=== PATIENT | male | born 1975 | race Two or more races ===

== ENCOUNTER 2018-11-02 01:43 | Emergency (ER) | payer MEDICAID ==
[~2018-11-02] VITALS: Ht 175.3 cm; Wt 122.0 kg
[~2018-11-02 01:43] MED LIST: BENZ1TAB7 PO; CLON-527 PO; CLON-529 PO; HAL5T PO; LAMO25TA40 PO; LISI-600 PO; METF500T PO; QUET-1 PO
[2018-11-02 02:17] VITALS: BP 145/87
[2018-11-02] MEDS ORDERED: PRAZ1CAP5 PO (14:28)
[2018-11-02] MEDS ORDERED: LISI40TA4 PO (14:28)
[2018-11-02] MEDS ORDERED: ARIP30TA7 PO (14:28)
[2018-11-02] MEDS ORDERED: LIT300C PO (14:28)
[2018-11-02] MEDS ORDERED: QUET300T2 PO (15:10)
[2018-11-02] MEDS ORDERED: LAMO150T2 PO (15:10)
[2018-11-02] MEDS ORDERED: LAMO25TA94 PO (15:10)
[2018-11-02] MEDS ORDERED: ARIP400S3 IM (15:10)
[2018-11-02] MEDS ORDERED: RISP3TAB3 PO (15:10)
== END 2018-11-02 02:20 | disposition home or self-care (01) ==
LOC: ER 01:44
DX: J06.9 Acute upper respiratory infection, unspecified (principal); I10 Essential (primary) hypertension; E11.9 Type 2 diabetes mellitus without complications; G89.29 Other chronic pain; Z79.899 Other long term (current) drug therapy
CPT/HCPCS: 99283

== ENCOUNTER 2018-11-02 13:58 | Emergency (ER) | payer MEDICAID ==
[~2018-11-02] VITALS: Ht 175.3 cm; Wt 108.0 kg
[2018-11-02] MEDS ORDERED: ARIP30TA7 PO (14:28)
[2018-11-02] MEDS ORDERED: LIT300C PO (14:28)
[2018-11-02] MEDS ORDERED: LISI40TA4 PO (14:28)
[2018-11-02] MEDS ORDERED: PRAZ1CAP5 PO (14:28)
[2018-11-02 15:08] LABS: BASOPHILS % (AUTO) 0.2 % (0-1); EOSINOPHILS # (AUTO) 0.1 X10'3 (0-0.9); EOSINOPHILS % (AUTO) 1.7 % (0-6); HEMATOCRIT 45.1 % (42.0-52.0); HEMOGLOBIN 15.9 g/dl (14.0-17.9); LYMPHOCYTES # (AUTO) 1.8 X10'3 (1.1-4.8); LYMPHOCYTES % (AUTO) 22.5 % (21-51); MEAN CORPUSCULAR HEMOGLOBIN 33.7 PG (27.0-31.0); MEAN CORPUSCULAR HGB CONC 35.2 % (33.0-36.5); MEAN CORPUSCULAR VOLUME 95.9 FL (78-98); MEAN PLATELET VOLUME 9.3 FL (7.4-10.4); MONOCYTES # (AUTO) 0.4 X10'3 (0-0.9); MONOCYTES % (AUTO) 5.4 % (2-12); NEUTROPHILS # (AUTO) 5.8 X10'3 (1.8-7.7); NEUTROPHILS % (AUTO) 70.2 % (42-75); PLATELET COUNT 105 X10'3 (140-440); RED CELL DISTRIBUTION WIDTH 14.1 % (11.5-14.5); WHITE BLOOD COUNT 8.2 X10'3 (4.5-11.0)
[2018-11-02] MEDS ORDERED: LAMO150T2 PO (15:10)
[2018-11-02] MEDS ORDERED: QUET300T2 PO (15:10)
[2018-11-02] MEDS ORDERED: RISP3TAB3 PO (15:10)
[2018-11-02] MEDS ORDERED: ARIP400S3 IM (15:10)
[2018-11-02] MEDS ORDERED: LAMO25TA94 PO (15:10)
[2018-11-02 15:25] LABS: ALANINE AMINOTRANSFERASE 34 U/L (12-78); ALBUMIN 3.7 G/DL (3.4-5.0); ALBUMIN/GLOBULIN RATIO 1.1 (1.1-1.5); ALKALINE PHOSPHATASE 89 IU/L (46-116); ANION GAP 10 (8-16); ASPARTATE AMINO TRANSFERASE 25 U/L (10-37); BILIRUBIN,TOTAL 0.5 MG/DL (0.1-1.0); BLOOD UREA NITROGEN 11 MG/DL (7-18); BUN/CREATININE RATIO 11.3 (5.4-32.0); CALCIUM 8.2 MG/DL (8.5-10.1); CHLORIDE 108 MMOL/L (99-107); CREATININE 0.97 MG/DL (0.60-1.10); ETHANOL 0.182 GM/DL (0.0-0.010); GLUCOSE 101 MG/DL (70-104); SODIUM 143 MMOL/L (135-145); TOTAL CARBON DIOXIDE 24.7 MMOL/L (24-32); TOTAL PROTEIN 7.2 G/DL (6.4-8.2); eGFR 84 ML/MIN
[2018-11-02 15:30] LABS: URINE AMPHETAMINE SCREEN NEGATIVE (Neg); URINE BARBITUATE SCREEN NEGATIVE (Neg); URINE BENZODIAZEPINES SCREEN NEGATIVE (Neg); URINE CANNABINOID SCREEN POSITIVE (Neg); URINE COCAINE SCREEN NEGATIVE (Neg); URINE METHADONE SCREEN NEGATIVE (Neg); URINE OPIATE SCREEN NEGATIVE (Neg); URINE PHENCYCLIDINE SCREEN NEGATIVE (Neg)
[2018-11-02] MEDS: metFORMIN 500mg tablet PO SCH (20:00)
[2018-11-02] MEDS: prazosin 1mg capsule PO SCH (21:34)
[2018-11-02] MEDS: quetiapine 100mg tablet PO SCH (21:34)
[2018-11-02] MEDS: lithium carbonate 300mg SR tablet (LithoBID) PO SCH (21:36)
[2018-11-02] MEDS: lamoTRIgine 25mg tablet PO SCH (21:36)
[2018-11-02] MEDS: risperiDONE 2mg tablet PO SCH (21:36)
[2018-11-03] MEDS: aripiprazole 5mg tablet PO SCH (08:42)
[2018-11-03] MEDS: lisinopril 20mg tablet PO SCH (08:43)
[2018-11-03] MEDS: lamoTRIgine 25mg tablet PO SCH ×2 (08:44→20:58)
[2018-11-03] MEDS: metFORMIN 500mg tablet PO SCH ×2 (08:47→20:57)
[2018-11-03] MEDS: lithium carbonate 300mg SR tablet (LithoBID) PO SCH (20:58)
[2018-11-03] MEDS: prazosin 1mg capsule PO SCH (20:59)
[2018-11-03] MEDS: risperiDONE 2mg tablet PO SCH (20:59)
[2018-11-03] MEDS: quetiapine 100mg tablet PO SCH (21:01)
[2018-11-04] MEDS: lisinopril 20mg tablet PO SCH (08:03)
[2018-11-04] MEDS: metFORMIN 500mg tablet PO SCH ×2 (08:03→20:26)
[2018-11-04] MEDS: lamoTRIgine 25mg tablet PO SCH ×2 (08:04→20:26)
[2018-11-04] MEDS: aripiprazole 5mg tablet PO SCH (08:04)
[2018-11-04] MEDS ORDERED: ondansetron 4mg rapidly disintigrating tab PO ONE (10:45)
[2018-11-04] MEDS: prazosin 1mg capsule PO SCH (20:26)
[2018-11-04] MEDS: quetiapine 100mg tablet PO SCH (20:26)
[2018-11-04] MEDS: lithium carbonate 300mg SR tablet (LithoBID) PO SCH (20:26)
[2018-11-04] MEDS: risperiDONE 2mg tablet PO SCH (20:27)
[2018-11-05] MEDS: aripiprazole 5mg tablet PO SCH (07:38)
[2018-11-05] MEDS: metFORMIN 500mg tablet PO SCH (07:39)
[2018-11-05] MEDS: lamoTRIgine 25mg tablet PO SCH (07:39)
[2018-11-05] MEDS: lisinopril 20mg tablet PO SCH (07:41)
[2018-11-05] MEDS: guaiFENesin/DM 10ml UD oral syrup PO PRN ×2 (07:41→15:02)
[2018-11-05 17:55] VITALS: BP 132/91
[2018-11-30] MEDS ORDERED: aripiprazole 400mg suspension ER syringe IM SCH (10:00)
== END 2018-11-08 15:39 | disposition home or self-care (01) ==
LOC: ER 13:59
DX: F32.9 Major depressive disorder, single episode, unspecified (principal); R45.851 Suicidal ideations; I10 Essential (primary) hypertension; E11.9 Type 2 diabetes mellitus without complications; G89.29 Other chronic pain; F41.9 Anxiety disorder, unspecified; F17.210 Nicotine dependence, cigarettes, uncomplicated; F20.9 Schizophrenia, unspecified; Z79.899 Other long term (current) drug therapy
CPT/HCPCS: 36415; 80053; 80178; 80305; 80320; 84443; 85025; 99285

== ENCOUNTER 2019-06-07 05:42 | Emergency (ER) | payer MEDICAID ==
[~2019-06-07] VITALS: Ht 175.3 cm; Wt 138.7 kg
[~2019-06-07 05:42] MED LIST changes: +ARIP30TA7 PO; +ARIP400S3 IM; -BENZ1TAB7 PO; -CLON-527 PO; -CLON-529 PO; -HAL5T PO; +LAMO150T2 PO; -LAMO25TA40 PO; +LAMO25TA94 PO; -LISI-600 PO; +LISI40TA4 PO; +LIT300C PO; +PRAZ1CAP5 PO; -QUET-1 PO; +QUET300T2 PO; +RISP3TAB3 PO
[2019-06-07 07:00] LABS: CLARITY,URINE CLEAR (Clear); COLOR,URINE STRAW (Yellow); GLUCOSE, URINE NEGATIVE (Neg); KETONES,URINE NEGATIVE (Neg); LEUKOCYTE ESTERASE ,URINE NEGATIVE (Neg); NITRITES, URINE NEGATIVE (Neg); OCCULT BLOOD,URINE TRACE-INTACT (Neg); PH,URINE 6.5 (4.8-8.0); PROTEIN,URINE TRACE mg/dl (Neg); UA COLLECTION TYPE VOIDED; UROBILINOGEN,URINE 0.2 E.U/dL (0.2-1.0)
[2019-06-07 07:08] LABS: BACTERIA,URINE NONE SEEN /HPF (Neg); MUCUS STRANDS NONE SEEN /LPF (Neg); RBC,URINE 0-2 /HPF (0-2); SQUAMOUS EPITHELIAL CELL,UR FEW /LPF (FEW); WBC,URINE NONE SEEN /HPF (0-4)
[2019-06-07 07:12] LABS: URINE AMPHETAMINE SCREEN NEGATIVE (Neg); URINE BARBITUATE SCREEN NEGATIVE (Neg); URINE BENZODIAZEPINES SCREEN NEGATIVE (Neg); URINE CANNABINOID SCREEN POSITIVE (Neg); URINE COCAINE SCREEN NEGATIVE (Neg); URINE METHADONE SCREEN NEGATIVE (Neg); URINE OPIATE SCREEN NEGATIVE (Neg); URINE PHENCYCLIDINE SCREEN NEGATIVE (Neg)
[2019-06-07 07:16] LABS: BASOPHILS # (AUTO) 0.1 X10'3 (0-0.2); EOSINOPHILS # (AUTO) 0.1 X10'3 (0-0.9); EOSINOPHILS % (AUTO) 2.4 % (0-6); HEMATOCRIT 46.4 % (42.0-52.0); HEMOGLOBIN 16.3 g/dl (14.0-17.9); LYMPHOCYTES % (AUTO) 24.9 % (21-51); MEAN CORPUSCULAR HEMOGLOBIN 34.4 PG (27.0-31.0); MEAN CORPUSCULAR VOLUME 98.2 FL (78-98); MEAN PLATELET VOLUME 8.5 FL (7.4-10.4); MONOCYTES # (AUTO) 0.3 X10'3 (0-0.9); MONOCYTES % (AUTO) 6.6 % (2-12); NEUTROPHILS # (AUTO) 2.5 X10'3 (1.8-7.7); NEUTROPHILS % (AUTO) 64.1 % (42-75); PLATELET COUNT 104 X10'3 (140-440); RED BLOOD COUNT 4.73 X10'6 (4.70-6.10); RED CELL DISTRIBUTION WIDTH 13.9 % (11.5-14.5); WHITE BLOOD COUNT 3.8 X10'3 (4.5-11.0)
--- NOTE | 2019-06-07 08:17 | NUR ---
[facility] REP IS GOING TO HELP GET THE PT'S MED REC WHEN HE COMES IN AT 8:30
[2019-06-07 08:18] LABS: ALANINE AMINOTRANSFERASE 118 U/L (12-78); ALKALINE PHOSPHATASE 93 IU/L (46-116); ANION GAP 11 (8-16); ASPARTATE AMINO TRANSFERASE 78 U/L (10-37); BILIRUBIN,TOTAL 0.9 MG/DL (0.1-1.0); BLOOD UREA NITROGEN 7 MG/DL (7-18); BUN/CREATININE RATIO 9.3 (5.4-32.0); CHLORIDE 105 MMOL/L (99-107); CREATININE 0.75 MG/DL (0.60-1.10); GLUCOSE 108 MG/DL (70-104); POTASSIUM 3.5 MMOL/L (3.5-5.1); SODIUM 140 MMOL/L (135-145); TOTAL CARBON DIOXIDE 24.5 MMOL/L (24-32); TOTAL PROTEIN 7.9 G/DL (6.4-8.2); eGFR > 90 ML/MIN
[2019-06-07 08:49] LABS: VALPROATE < 3.0 UG/ML (50-100)
[2019-06-07 08:57] LABS: ETHANOL 0.075 GM/DL (0.0-0.010)
[2019-06-07] MEDS ORDERED: lisinopril 20mg tablet PO ONE (11:45)
--- NOTE | 2019-06-07 11:50 | NUR ---
DISCUSSED WITH DR SPEAR THAT PT REPORTS HIS BP MED WAS DC'D APPROX A WEEK AGO. PTS BP RETAKEN AND FOUND TO BE 216/139. LISINOPRIL 40MG DAILY TO BE RESUMED.
[2019-06-07] MEDS: lamoTRIgine 100mg tablet PO SCH (14:45)
[2019-06-07] MEDS: lamoTRIgine 25mg tablet PO SCH (14:45)
--- NOTE | 2019-06-07 15:05 | NUR ---
PT WAS SEEN BY [facility] WORKER AND IS BEING PLACED ON 5159
--- NOTE | 2019-06-07 17:00 | NUR ---
GAVE REPORT TO MATTHEW FROM [facility] REGARDING POSSIBLE PLACEMENT.
--- NOTE | 2019-06-07 17:38 | NUR ---
[facility] IF BP EQUAL OR LESS THAN 108/100 4 HOURS APART, DR HALLFS INFORMED ORDERS TO FOLLOW.
[2019-06-07] MEDS ORDERED: metoprolol tartrate 50mg tablet PO ONE (17:40)
--- NOTE | 2019-06-07 17:52 | NUR ---
MEDICATED PT WITH METOPROLOL PER ORDERS, PT CALM AND COOPERATIVE DURING INTERACTION.
[2019-06-07] MEDS ORDERED: aripiprazole 5mg tablet PO SCH (19:25)
[2019-06-07] MEDS: quetiapine 100mg tablet PO SCH (20:19)
[2019-06-07] MEDS: lithium carbonate 450mg CR tablet PO SCH (20:19)
--- NOTE | 2019-06-08 07:00 | NUR ---
Pt up to use the BR.
[2019-06-08] MEDS: lamoTRIgine 100mg tablet PO SCH (08:21)
[2019-06-08] MEDS: lisinopril 20mg tablet PO SCH (08:21)
[2019-06-08] MEDS: lamoTRIgine 25mg tablet PO SCH (08:22)
--- NOTE | 2019-06-08 08:40 | NUR ---
Pt reports depression at a 7/10, still endorsing SI with no specific plan today. Pt rates his anxiety at a 6/10. Pt reports CAH to harm himself and VH; "just black clouds." Pt cooperative with medications this morning. BP is stable today at 121/77 before BP meds.
--- NOTE | 2019-06-08 10:21 | NUR ---
[facility] called, pt has been accepted there, requested VS flowsheet and current med list to be faxed over to them: done.
--- NOTE | 2019-06-08 12:06 | NUR ---
Stephanie from the [facility] office called requesting that just a VS flowsheet be faxed to [facility]. Rechecked VS, BP currently 138/96, pulse of 86. Faxed flowsheet with current VS to [facility].
--- NOTE | 2019-06-08 14:00 | NUR ---
Flavio hicks in [facility] - 06/08/19 at 1419 by YESICA Ot up to the bathroom.
--- NOTE | 2019-06-08 14:00 | NUR ---
Pt up to the bathroom.
--- NOTE | 2019-06-08 16:00 | NUR ---
Pt c/o increased anxiety, probably due to another pt who was being loud. Pt has no prn med for anxiety, will address with MD.
--- NOTE | 2019-06-08 17:05 | NUR ---
Patient resting in bed. no s/s of distress or pain. will continue to monitor.
--- NOTE | 2019-06-08 17:22 | NUR ---
Pt resting calmly and quietly in bed at this time.
--- NOTE | 2019-06-08 18:45 | NUR ---
Patient sleeping on right side. No distress observed. Continue to monitor.
--- NOTE | 2019-06-08 19:55 | NUR ---
Patient sleeping on left side. No distress observed. Continue to monitor.
[2019-06-08] MEDS: quetiapine 100mg tablet PO SCH (20:24)
[2019-06-08] MEDS: lithium carbonate 450mg CR tablet PO SCH (20:24)
[2019-06-08] MEDS: aripiprazole 5mg tablet PO SCH (20:25)
--- NOTE | 2019-06-08 21:05 | NUR ---
Patient sleeping on left side. No distress observed. Continue to monitor.
--- NOTE | 2019-06-08 23:20 | NUR ---
Patient sleeping on right side. No distress observed. Continue to monitor.
--- NOTE | 2019-06-09 01:40 | NUR ---
Patient up and adjusting his position. No distress observed. Continue to monitor.
--- NOTE | 2019-06-09 04:01 | NUR ---
Patient sleeping on left side. No distress observed. Continue to monitor.
--- NOTE | 2019-06-09 07:37 | NUR ---
Patient compliant with 1:1 assessment, verbalizes depression at 8/10 which is increased from yesterday. Understands reason for delay in placement. States he feels safe here.
[2019-06-09] MEDS: lamoTRIgine 100mg tablet PO SCH (08:46)
[2019-06-09] MEDS: lamoTRIgine 25mg tablet PO SCH (08:46)
[2019-06-09] MEDS: lisinopril 20mg tablet PO SCH (08:48)
--- NOTE | 2019-06-09 09:59 | NUR ---
Consumed 100% of breakfast, resting comfortably, requested bath wipes and clean scrubs. Awaiting placement. compliant with all medications.
--- NOTE | 2019-06-09 15:19 | NUR ---
Spoke with [facility] regarding possible placement. Awaiting notification.
--- NOTE | 2019-06-09 16:43 | NUR ---
Resting in bed. No outward signs/symptoms of distress
[2019-06-09] MEDS: lithium carbonate 450mg CR tablet PO SCH (20:21)
[2019-06-09] MEDS: quetiapine 100mg tablet PO SCH (20:22)
[2019-06-09] MEDS: aripiprazole 5mg tablet PO SCH (20:22)
[2019-06-09 22:40] VITALS: BP 142/95
== END 2019-06-09 22:49 | disposition home or self-care (01) ==
LOC: ER 05:43
DX: R45.851 Suicidal ideations (principal); F32.9 Major depressive disorder, single episode, unspecified; F20.9 Schizophrenia, unspecified; I10 Essential (primary) hypertension; E11.9 Type 2 diabetes mellitus without complications; G89.29 Other chronic pain; F41.9 Anxiety disorder, unspecified; F17.200 Nicotine dependence, unspecified, uncomplicated; Z79.84 Long term (current) use of oral hypoglycemic drugs; Z79.899 Other long term (current) drug therapy
CPT/HCPCS: 36415; 80053; 80164; 80178; 80305; 80320; 81001; 84443; 85025; 99285

== ENCOUNTER 2019-06-29 17:30 | Emergency (ER) | payer MEDICAID ==
[~2019-06-29] VITALS: Ht 175.3 cm; Wt 127.3 kg
[~2019-06-29 17:30] MED LIST changes: -ARIP30TA7 PO; -ARIP400S3 IM; -LAMO25TA94 PO; -LIT300C PO; -METF500T PO; -PRAZ1CAP5 PO; -RISP3TAB3 PO
[2019-06-29] MEDS ORDERED: quetiapine 100mg tablet PO STA (18:02)
--- NOTE | 2019-06-29 18:33 | NUR ---
Discussed pt's increased racing thoughts and willingness to accept IM medication with Dr Syed. New orders received for Katarzyna.
[2019-06-29] MEDS ORDERED: ziprasidone IM 20mg inj **IM only IM ONE (18:35)
[2019-06-29 18:37] LABS: BASOPHILS # (AUTO) 0.2 X10'3 (0-0.2); HEMOGLOBIN 17.4 g/dl (14.0-17.9); MEAN CORPUSCULAR HGB CONC 35.5 g/dL (33.0-36.5); MEAN PLATELET VOLUME 8.4 FL (7.4-10.4); MONOCYTES # (AUTO) 0.5 X10'3 (0-0.9); NEUTROPHILS # (AUTO) 3.5 X10'3 (1.8-7.7)
[2019-06-29 18:38] LABS: ALANINE AMINOTRANSFERASE 73 U/L (12-78); ALBUMIN 4.1 G/DL (3.4-5.0); ALKALINE PHOSPHATASE 106 IU/L (46-116); ANION GAP 12 (8-16); ASPARTATE AMINO TRANSFERASE 49 U/L (10-37); BILIRUBIN,TOTAL 0.5 MG/DL (0.1-1.0); BLOOD UREA NITROGEN 5 MG/DL (7-18); BUN/CREATININE RATIO 5.3 (5.4-32.0); CALCIUM 8.4 MG/DL (8.5-10.1); CHLORIDE 107 MMOL/L (99-107); CREATININE 0.94 MG/DL (0.60-1.10); GLUCOSE 96 MG/DL (70-104); POTASSIUM 3.4 MMOL/L (3.5-5.1); SODIUM 145 MMOL/L (135-145); TOTAL CARBON DIOXIDE 26.4 MMOL/L (24-32); TOTAL PROTEIN 8.2 G/DL (6.4-8.2); eGFR 87 ML/MIN
[2019-06-29 18:39] LABS: BASOPHILS % (AUTO) 1.8 % (0-1); EOSINOPHILS # (AUTO) 0.2 X10'3 (0-0.9); EOSINOPHILS % (AUTO) 2.9 % (0-6); LYMPHOCYTES # (AUTO) 4.1 X10'3 (1.1-4.8); MEAN CORPUSCULAR HEMOGLOBIN 34.1 PG (27.0-31.0); MEAN CORPUSCULAR VOLUME 96.1 FL (78-98); NEUTROPHILS % (AUTO) 41.3 % (42-75); PLATELET COUNT 206 X10'3 (140-440); RED CELL DISTRIBUTION WIDTH 13.6 % (11.5-14.5); WHITE BLOOD COUNT 8.5 X10'3 (4.5-11.0)
[2019-06-29 18:40] LABS: ETHANOL 0.329 GM/DL (0.0-0.010)
[2019-06-29 19:27] LABS: PLATELET ESTIMATE NORMAL
[2019-06-29 19:28] LABS: SPHEROCYTES 1+
[2019-06-29 19:30] LABS: URINE AMPHETAMINE SCREEN NEGATIVE (Neg); URINE BARBITUATE SCREEN NEGATIVE (Neg); URINE BENZODIAZEPINES SCREEN NEGATIVE (Neg); URINE CANNABINOID SCREEN NEGATIVE (Neg); URINE COCAINE SCREEN NEGATIVE (Neg); URINE METHADONE SCREEN NEGATIVE (Neg); URINE OPIATE SCREEN NEGATIVE (Neg); URINE PHENCYCLIDINE SCREEN NEGATIVE (Neg)
--- NOTE | 2019-06-29 19:52 | NUR ---
Packet sent to [facility]. Confirmed receipt of packet with Gene @ [facility] office.
[2019-06-29] MEDS ORDERED: quetiapine 100mg tablet PO SCH (21:00)
--- NOTE | 2019-06-30 02:26 | NUR ---
Pt awoke briefly. He was more oriented than anytime previously in this RNs shift. He recalled agreeing to an IM shot, reporting his thoughts have slowed down and are "more like they're suppose to be." Pt denies S/H/I @ this time. Pt returned readily to sleep.
[2019-06-30] MEDS ORDERED: lisinopril 20mg tablet PO ONE (05:15)
--- NOTE | 2019-06-30 07:19 | NUR ---
patient has been up to use restroom and is sitting quietly in room.
--- NOTE | 2019-06-30 07:28 | NUR ---
All medications given and taken.
[2019-06-30] MEDS ORDERED: quetiapine 100mg tablet PO SCH (08:00)
[2019-06-30] MEDS ORDERED: lamoTRIgine 100mg tablet PO SCH (08:00)
[2019-06-30] MEDS ORDERED: lisinopril 20mg tablet PO SCH (08:00)
[2019-06-30] MEDS ORDERED: QUEtiapine 25mg tablet CORPAK SCH (08:00)
--- NOTE | 2019-06-30 08:23 | NUR ---
[facility] Page in to eval patient.
[2019-06-30 09:03] VITALS: BP 119/61
--- NOTE | 2019-06-30 11:22 | NUR ---
ok to discharge pt per dr cheema
== END 2019-06-30 11:23 | disposition home or self-care (01) ==
LOC: ER 17:31
DX: R45.851 Suicidal ideations (principal); R45.850 Homicidal ideations; F10.129 Alcohol abuse with intoxication, unspecified; I10 Essential (primary) hypertension; E11.9 Type 2 diabetes mellitus without complications; G89.29 Other chronic pain; F41.9 Anxiety disorder, unspecified; F31.9 Bipolar disorder, unspecified; F20.9 Schizophrenia, unspecified; F17.200 Nicotine dependence, unspecified, uncomplicated; Z79.899 Other long term (current) drug therapy; Y90.0 Blood alcohol level of less than 20 mg/100 ml
CPT/HCPCS: 36415; 80053; 80305; 80320; 85025; 93005; 96372; 99284; J3486

== ENCOUNTER 2019-11-22 18:44 | Emergency (ER) | payer MEDICAID ==
[~2019-11-22] VITALS: Ht 175.3 cm; Wt 127.3 kg
[2019-11-22 18:53] VITALS: BP 199/130
--- NOTE | 2019-11-22 19:39 | NUR ---
PT STATES HE HAS NO WISH TO HARM SELF OR OTHERS. HE STATES HE SELF MEDICATES WITH METH AND ETOH. HE WANTS AN RX OF UNKNOWN [facility] MEDS
[2019-11-23] MEDS ORDERED: NO HOME MEDS (16:10)
== END 2019-11-22 20:13 | disposition home or self-care (01) ==
LOC: ER 18:45
DX: R45.1 Restlessness and agitation (principal); I10 Essential (primary) hypertension; E11.9 Type 2 diabetes mellitus without complications; G89.29 Other chronic pain; F41.9 Anxiety disorder, unspecified; F31.9 Bipolar disorder, unspecified; F20.9 Schizophrenia, unspecified; F10.99 Alcohol use, unspecified with unspecified alcohol-induced disorder; Z79.899 Other long term (current) drug therapy; Y90.9 Presence of alcohol in blood, level not specified
CPT/HCPCS: 99281

== ENCOUNTER 2019-11-23 15:37 | Emergency (ER) | payer MEDICAID ==
[~2019-11-23] VITALS: Ht 175.3 cm; Wt 109.0 kg
--- NOTE | 2019-11-23 15:45 | NUR ---
Pt arrived on unit accompanied by ER unit guillermina and girlfriend, Brittney. He is ambulating self in no physical distress. He is pleasant and cooperative with care. All items inventoried and stored in [facility] lockers. He is changes in to [facility] scrubs. All contraband secured. Water and snack offered to patient. He is a smoker, states about 5 cigarettes/day. He states that he is actively suicidal and that he would "walk in front of a car". Denies A/VH. He states that he has thoughts of hurting others but denies this currently.
[2019-11-23] MEDS ORDERED: NO HOME MEDS (16:10)
--- NOTE | 2019-11-23 16:10 | NUR ---
Patient states that he has not taken any medications in 2 months and can not remember which medications he took or the amount. He recalls that he had an injection in September and states he thinks it was Abilify Maintaina.
--- NOTE | 2019-11-23 16:47 | NUR ---
Abiel TRUJILLO, is at bedside assessing the patient.
--- NOTE | 2019-11-23 16:49 | NUR ---
Per [facility], he was seen in June. He was transferred to [facility] and left the facility. He currently resides with his girlfriend at [facility] in [place].
--- NOTE | 2019-11-23 16:53 | NUR ---
Girlfriend states that she "does not believe in medications and I could not talk to him when he was on medications, he was like a zombie".
[2019-11-23 17:40] LABS: ALANINE AMINOTRANSFERASE 120 U/L (12-78); ALBUMIN/GLOBULIN RATIO 1.1 (1.1-1.5); ALKALINE PHOSPHATASE 125 IU/L (46-116); ANION GAP 9 (8-16); ASPARTATE AMINO TRANSFERASE 75 U/L (10-37); BILIRUBIN,TOTAL 1.6 MG/DL (0.1-1.0); BLOOD UREA NITROGEN 8 MG/DL (7-18); BUN/CREATININE RATIO 8.2 (5.4-32.0); CALCIUM 9.3 MG/DL (8.5-10.1); CHLORIDE 102 MMOL/L (99-107); CREATININE 0.97 MG/DL (0.60-1.10); ETHANOL < 0.010 GM/DL (0.0-0.010); GLUCOSE 101 MG/DL (70-104); SODIUM 140 MMOL/L (135-145); TOTAL CARBON DIOXIDE 28.7 MMOL/L (24-32); TOTAL PROTEIN 7.5 G/DL (6.4-8.2); eGFR 83 ML/MIN
[2019-11-23 17:40] LABS: URINE AMPHETAMINE SCREEN POSITIVE (Neg); URINE BARBITUATE SCREEN NEGATIVE (Neg); URINE BENZODIAZEPINES SCREEN NEGATIVE (Neg); URINE CANNABINOID SCREEN POSITIVE (Neg); URINE COCAINE SCREEN NEGATIVE (Neg); URINE METHADONE SCREEN NEGATIVE (Neg); URINE OPIATE SCREEN NEGATIVE (Neg); URINE PHENCYCLIDINE SCREEN NEGATIVE (Neg)
[2019-11-23] MEDS ORDERED: ziprasidone IM 20mg inj **IM only IM ONE (17:45)
[2019-11-23 17:50] LABS: BASOPHILS # (AUTO) 0.1 X10'3 (0-0.2); BASOPHILS % (AUTO) 1.2 % (0-1); EOSINOPHILS # (AUTO) 0.1 X10'3 (0-0.9); EOSINOPHILS % (AUTO) 1.8 % (0-6); HEMATOCRIT 46.8 % (42.0-52.0); HEMOGLOBIN 16.8 g/dl (14.0-17.9); LYMPHOCYTES # (AUTO) 1.2 X10'3 (1.1-4.8); LYMPHOCYTES % (AUTO) 23.4 % (21-51); MEAN CORPUSCULAR HEMOGLOBIN 34.7 PG (27.0-31.0); MEAN CORPUSCULAR HGB CONC 35.9 g/dL (33.0-36.5); MEAN CORPUSCULAR VOLUME 96.5 FL (78-98); MEAN PLATELET VOLUME 9.7 FL (7.4-10.4); MONOCYTES # (AUTO) 0.6 X10'3 (0-0.9); MONOCYTES % (AUTO) 12.1 % (2-12); NEUTROPHILS # (AUTO) 3.1 X10'3 (1.8-7.7); NEUTROPHILS % (AUTO) 61.5 % (42-75); PLATELET COUNT 116 X10'3 (140-440); RED BLOOD COUNT 4.85 X10'6 (4.70-6.10); RED CELL DISTRIBUTION WIDTH 14.3 % (11.5-14.5); WHITE BLOOD COUNT 5.1 X10'3 (4.5-11.0)
--- NOTE | 2019-11-23 18:06 | NUR ---
Gave report to HAYLEY Best. New order noted for RONNIE Colón.
[2019-11-23 18:10] LABS: PLATELET ESTIMATE DECREASED
--- NOTE | 2019-11-23 18:10 | NUR ---
This patient is awake and pacing. He exhibits extreme agitation. Patient is well oriented. Patient states "give me something to calm me down, my mind is racing!" This patient is cooperative with this card writer hand at this moment. Geodon 10 mg will be given IM.
[2019-11-23 18:11] LABS: ANISOCYTOSIS 1+; SPHEROCYTES FEW
[2019-11-23] MEDS ORDERED: potassium Cl 20 mEq SR tablet PO STA (18:12)
--- NOTE | 2019-11-23 18:25 | NUR ---
Patient was given Geodon 10 mg IM. PO K+ 10mEq was given also due to low pottasium level on labs.
[2019-11-23] MEDS ORDERED: potassium Cl 20 mEq SR tablet PO ONE (18:30)
--- NOTE | 2019-11-23 18:44 | NUR ---
Patient remains very agitated. B/P 178/126, Pulse 112, Resp 16, Temp 97.9 Oral, Sa02 is 98 percent on room air. Patient exhibits paranoia, he is responding to voices that are telling him to hurt others and kill himself. Patient states his mind is spinning way to fast. Orders recieved for B52 IM as patient is not calming with the Geodon that was administered IM earlier.
[2019-11-23] MEDS ORDERED: LORazepam 2 mg/ml vial IM ONE (18:45)
[2019-11-23] MEDS ORDERED: diphenhydrAMINE 50 mg/ml inj IM ONE (18:45)
[2019-11-23] MEDS ORDERED: haloperidol lactate 5mg/ml inj IM ONE (18:45)
--- NOTE | 2019-11-23 18:50 | NUR ---
B52 given IM. Patient was medication compliant.
--- NOTE | 2019-11-23 19:12 | NUR ---
Patient is now sleeping low fowlers position in bed. He is warm and dry, normal respiratory rate of 14 with good tidal volume. Patients pulse rate is now 88.
[2019-11-24 00:35] LABS: CLARITY,URINE CLEAR (Clear); COLOR,URINE YELLOW (Yellow); GLUCOSE, URINE NEGATIVE (Neg); KETONES,URINE NEGATIVE (Neg); LEUKOCYTE ESTERASE ,URINE NEGATIVE (Neg); NITRITES, URINE NEGATIVE (Neg); OCCULT BLOOD,URINE TRACE-INTACT (Neg); PROTEIN,URINE NEGATIVE (Neg); UROBILINOGEN,URINE >=8.0 E.U/dL (0.2-1.0)
[2019-11-24 00:37] LABS: UA COLLECTION TYPE CLN CATCH MIDSTREAM
[2019-11-24 00:47] LABS: AMORPHOUS PHOSPHATES 2+; BACTERIA,URINE NONE SEEN /HPF (Neg); MUCUS STRANDS NONE SEEN /LPF (Neg); RBC,URINE 0-2 /HPF (0-2); SQUAMOUS EPITHELIAL CELL,UR FEW /LPF (FEW); WBC,URINE 0-4 /HPF (0-4)
--- NOTE | 2019-11-24 01:24 | NUR ---
Patient sleeiing on his left side. In view from nursing station.
--- NOTE | 2019-11-24 03:43 | NUR ---
Patient is sleeping quietly, low fowlers. In view from nursing station.
--- NOTE | 2019-11-24 04:40 | NUR ---
Patient sleeping quietly. Blankets in place. Low fowlers position.
[2019-11-24 05:09] VITALS: BP 154/112
--- NOTE | 2019-11-24 05:19 | NUR ---
Patient sleeping on his left side. In view from nursing station.
--- NOTE | 2019-11-24 07:00 | NUR ---
Resting with eyes closed, respirations normal. Was given benadryl, ativan and haldol last evening.
--- NOTE | 2019-11-24 09:00 | NUR ---
girlfriend at bedside, pleasant interactions so far
[2019-11-24] MEDS ORDERED: potassium Cl 20 mEq SR tablet PO STA (09:29)
--- NOTE | 2019-11-24 09:30 | NUR ---
2 large pills found in pts bed, one partially disolved. identified as the potassium given to him last night. Rec order from md for another replacement of 40 mEq x1 dose, k+ level was 3.0
--- NOTE | 2019-11-24 13:40 | NUR ---
Patient sitting on bed with significant other. No distress observed. Continue to monitor.
--- NOTE | 2019-11-24 14:47 | NUR ---
Note kurt in [facility] - 11/24/19 at 1458 by KINGA Patient being evaluated by Andrzej TAN. No distress observed. Continue to monitor.
== END 2019-11-24 14:40 | disposition home or self-care (01) ==
LOC: ER 15:38
DX: R45.851 Suicidal ideations (principal); I10 Essential (primary) hypertension; E11.9 Type 2 diabetes mellitus without complications; G89.29 Other chronic pain; F41.9 Anxiety disorder, unspecified; F12.90 Cannabis use, unspecified, uncomplicated; F15.90 Other stimulant use, unspecified, uncomplicated; F31.9 Bipolar disorder, unspecified; F20.9 Schizophrenia, unspecified; F10.99 Alcohol use, unspecified with unspecified alcohol-induced disorder; Y90.9 Presence of alcohol in blood, level not specified
CPT/HCPCS: 36415; 80053; 80305; 80320; 81001; 85025; 96372; 99284; J1200; J1630; J2060; J3486

== ENCOUNTER 2020-06-05 09:38 | Inpatient (IN) | payer MEDICAID, OTHER ==
[~2020-06-05] VITALS: Ht 175.3 cm; Wt 104.5 kg
[~2020-06-05 09:38] MED LIST changes: -LAMO150T2 PO; -LISI40TA4 PO; +NO HOME MEDS; -QUET300T2 PO
[2020-06-05] MEDS ORDERED: ondansetron 4mg rapidly disintigrating tab PO ONE (11:40)
[2020-06-05] MEDS ORDERED: normal saline 1000ML IV soln IV ONE (11:40)
[2020-06-05] MEDS ORDERED: HYDROcodone/acetaminophen 5mg/325mg tablet PO ONE (11:40)
[2020-06-05 12:18] LABS: BASOPHILS # (AUTO) 0.1 X10'3 (0-0.2); BASOPHILS % (AUTO) 0.7 % (0-1); EOSINOPHILS # (AUTO) 0.1 X10'3 (0-0.9); EOSINOPHILS % (AUTO) 0.8 % (0-6); HEMATOCRIT 36.6 % (42.0-52.0); HEMOGLOBIN 12.4 g/dl (14.0-17.9); LYMPHOCYTES # (AUTO) 1.1 X10'3 (1.1-4.8); LYMPHOCYTES % (AUTO) 9.8 % (21-51); MEAN CORPUSCULAR HEMOGLOBIN 34.1 PG (27.0-31.0); MEAN CORPUSCULAR VOLUME 100.2 FL (78-98); MEAN PLATELET VOLUME 8.6 FL (7.4-10.4); MONOCYTES # (AUTO) 0.7 X10'3 (0-0.9); MONOCYTES % (AUTO) 6.3 % (2-12); NEUTROPHILS # (AUTO) 9.1 X10'3 (1.8-7.7); NEUTROPHILS % (AUTO) 82.4 % (42-75); PLATELET COUNT 217 X10'3 (140-440); RED BLOOD COUNT 3.65 X10'6 (4.70-6.10); RED CELL DISTRIBUTION WIDTH 12.8 % (11.5-14.5); WHITE BLOOD COUNT 11.1 X10'3 (4.5-11.0)
[2020-06-05 12:32] LABS: PARTIAL THROMBOPLASTIN TIME 28 SECONDS (22-32)
[2020-06-05 12:41] LABS: ALANINE AMINOTRANSFERASE 46 U/L (12-78); ALBUMIN 2.7 G/DL (3.4-5.0); ALBUMIN/GLOBULIN RATIO 0.6 (1.1-1.5); ALKALINE PHOSPHATASE 85 IU/L (46-116); ANION GAP 7 (8-16); BILIRUBIN,TOTAL 0.6 MG/DL (0.1-1.0); BLOOD UREA NITROGEN 14 MG/DL (7-18); BUN/CREATININE RATIO 15.2 (5.4-32.0); CALCIUM 8.6 MG/DL (8.5-10.1); CHLORIDE 102 MMOL/L (99-107); CREATININE 0.92 MG/DL (0.60-1.10); GLUCOSE 93 MG/DL (70-104); SODIUM 134 MMOL/L (135-145); TOTAL CARBON DIOXIDE 25.1 MMOL/L (24-32); TOTAL PROTEIN 7.4 G/DL (6.4-8.2); eGFR 89 ML/MIN
[2020-06-05 12:43] LABS: ASPARTATE AMINO TRANSFERASE 49 U/L (10-37)
[2020-06-05 12:48] LABS: POTASSIUM 5.1 MMOL/L (3.5-5.1)
[2020-06-05] MEDS ORDERED: vancomycin/NS 1 GM ADD-VANTAGE 250 ML IV ONE (13:00)
[2020-06-05] MEDS ORDERED: ondansetron/PF 4mg/2ml inj IV PRN (13:25)
[2020-06-05] MEDS ORDERED: magnesium 4gm in 100ml NS 100 ML IV PRN (13:25)
[2020-06-05] MEDS ORDERED: bisacodyl 10mg suppository rectal RC PRN (13:25)
[2020-06-05] MEDS ORDERED: diphenhydrAMINE 25mg capsule PO PRN (13:25)
[2020-06-05] MEDS ORDERED: morphine 2 MG/ML inj. syringe IV PRN ×2 (13:25)
[2020-06-05] MEDS ORDERED: magnesium hydroxide 30ml (MOM) UD suspension PO PRN (13:25)
[2020-06-05] MEDS ORDERED: acetaminophen 325mg tablet PO PRN ×2 (13:25)
[2020-06-05] MEDS ORDERED: magnesium 2GM in 50ml NS 50 ML IV PRN (13:25)
[2020-06-05] MEDS ORDERED: insulin Lispro (HumaLOG) vial - multi-dose SQ SCH (13:25)
[2020-06-05] MEDS ORDERED: magnesium Cl slow-release 64mg tablet PO PRN (13:25)
[2020-06-05] MEDS ORDERED: dextrose ORAL solution 15 GM/59 ML bottle PO PRN ×2 (13:25)
[2020-06-05] MEDS ORDERED: MESSAGE TO PHARMACY PO ONE (13:25)
[2020-06-05] MEDS ORDERED: acetaminophen 650mg rectal suppository RC PRN (13:25)
[2020-06-05] MEDS ORDERED: HYDROcodone/acetaminophen 5mg/325mg tablet PO PRN (13:25)
[2020-06-05] MEDS ORDERED: glucagon, human recombinant 1mg kit SUBCUT PRN (13:25)
[2020-06-05] MEDS ORDERED: mag hydrox/Alum hydrox/simeth 30ml oral suspension PO PRN (13:25)
[2020-06-05] MEDS ORDERED: potassium CL 10mEq/100ml bag 100 ML IV PRN ×2 (13:25)
[2020-06-05] MEDS ORDERED: potassium Cl 20 mEq SR tablet PO PRN ×2 (13:25)
[2020-06-05] MEDS ORDERED: dextrose 50%-water 50ml dispensing syringe IV PRN ×2 (13:25)
[2020-06-05] MEDS: normal saline 1000ml 1,000 ML IV SCH ×2 (13:33→21:13)
[2020-06-05] MEDS ORDERED: cefepime 1GM in D5W 50mL 50 ML IV SCH (14:00)
[2020-06-05 14:06] LABS: HEMOGLOBIN A1C 4.8 % (4.5-6.2)
[2020-06-05 14:25] LABS: CLARITY,URINE CLEAR (Clear); COLOR,URINE YELLOW (Yellow); GLUCOSE, URINE NEGATIVE (Neg); KETONES,URINE NEGATIVE (Neg); LEUKOCYTE ESTERASE ,URINE NEGATIVE (Neg); NITRITES, URINE NEGATIVE (Neg); OCCULT BLOOD,URINE TRACE-INTACT (Neg); PROTEIN,URINE NEGATIVE (Neg)
[2020-06-05 14:28] LABS: UA COLLECTION TYPE NON-SPECIFIED
[2020-06-05] MEDS ORDERED: LISI10TA PO (14:30)
[2020-06-05] MEDS ORDERED: METO50TA17 PO (14:30)
[2020-06-05] MEDS ORDERED: METF-438 PO (14:30)
[2020-06-05 14:31] LABS: BACTERIA,URINE NONE SEEN /HPF (Neg); MUCUS STRANDS NONE SEEN /LPF (Neg); RBC,URINE 0-2 /HPF (0-2); SQUAMOUS EPITHELIAL CELL,UR FEW /LPF (FEW); WBC,URINE NONE SEEN /HPF (0-4)
[2020-06-05 14:56] VITALS: BP 132/90
[2020-06-05] MEDS ORDERED: GADOTERATE MEGLUMINE 7.5 MMOL/15 ML VIAL IV ONE (17:21)
[2020-06-05 18:00] VITALS: BP 116/81
--- NOTE | 2020-06-05 18:33 | NUR ---
Problems reprioritized. Patient report given, questions answered & plan of care reviewed with HAYLEY Montes.
--- NOTE | 2020-06-05 19:45 | NUR ---
Patient in room ORTHO 4014. I have received report from FRANKY HARDY and had the opportunity to ask questions and assume patient care.
[2020-06-05] MEDS: K and/or MAG REPLACEMENT MC SCH (20:00)
[2020-06-05] MEDS: insulin glargine (Lantus) pen - multi-dose SQ SCH (21:00)
[2020-06-05] MEDS: VANCOMYCIN 1,500MG inj. 1,500 MG in normal saline 250ml IV soln 300 ML IV SCH (21:12)
[2020-06-05] MEDS: heparin, porcine 5000 units/ml vial SQ SCH (21:24)
[2020-06-05 23:00] VITALS: BP 112/80
[2020-06-06] MEDS ORDERED: cefepime 1GM in D5W 50mL 50 ML IV ONE
[2020-06-06] MEDS: HYDROcodone/acetaminophen 10/325mg tab PO PRN ×4 (02:36→19:54)
[2020-06-06] MEDS: VANCOMYCIN 1,500MG inj. 1,500 MG in normal saline 250ml IV soln 300 ML IV SCH ×3 (04:41→20:47)
[2020-06-06 06:00] VITALS: BP 116/86
--- NOTE | 2020-06-06 06:30 | NUR ---
Patient in room ORTHO 4014. I have received report from Sujatha Solares RN and had the opportunity to ask questions and assume patient care.
[2020-06-06 06:37] LABS: ALANINE AMINOTRANSFERASE 43 U/L (12-78); ALBUMIN 2.4 G/DL (3.4-5.0); ALBUMIN/GLOBULIN RATIO 0.6 (1.1-1.5); ALKALINE PHOSPHATASE 75 IU/L (46-116); ANION GAP 9 (8-16); ASPARTATE AMINO TRANSFERASE 25 U/L (10-37); BILIRUBIN,TOTAL 0.6 MG/DL (0.1-1.0); BLOOD UREA NITROGEN 11 MG/DL (7-18); BUN/CREATININE RATIO 11.7 (5.4-32.0); CALCIUM 7.7 MG/DL (8.5-10.1); CHLORIDE 107 MMOL/L (99-107); CHOL/HDL RATIO 3.9 (0.00-4.99); CHOLESTEROL 110 MG/DL (0-200); CREATININE 0.94 MG/DL (0.60-1.10); GLUCOSE 107 MG/DL (70-104); HDL CHOLESTEROL 28 MG/DL (35-60); LDL CHOLESTEROL 72 MG/DL (50-100); PHOSPHORUS 3.6 MG/DL (2.3-4.5); POTASSIUM 4.2 MMOL/L (3.5-5.1); SODIUM 137 MMOL/L (135-145); TOTAL CARBON DIOXIDE 21.5 MMOL/L (24-32); TOTAL PROTEIN 6.6 G/DL (6.4-8.2); TRIGLYCERIDES 58 MG/DL (20-135); eGFR 86 ML/MIN
--- NOTE | 2020-06-06 06:40 | NUR ---
Problems reprioritized. Patient report given, questions answered & plan of care reviewed with JOSHUA RN.
[2020-06-06 06:43] LABS: BASOPHILS # (AUTO) 0.1 X10'3 (0-0.2); BASOPHILS % (AUTO) 0.7 % (0-1); EOSINOPHILS # (AUTO) 0.1 X10'3 (0-0.9); EOSINOPHILS % (AUTO) 1.5 % (0-6); HEMATOCRIT 38.3 % (42.0-52.0); HEMOGLOBIN 13.2 g/dl (14.0-17.9); LYMPHOCYTES # (AUTO) 1.3 X10'3 (1.1-4.8); LYMPHOCYTES % (AUTO) 15.8 % (21-51); MEAN CORPUSCULAR HEMOGLOBIN 34.6 PG (27.0-31.0); MEAN CORPUSCULAR HGB CONC 34.4 g/dL (33.0-36.5); MEAN CORPUSCULAR VOLUME 100.8 FL (78-98); MEAN PLATELET VOLUME 8.5 FL (7.4-10.4); MONOCYTES # (AUTO) 0.5 X10'3 (0-0.9); NEUTROPHILS # (AUTO) 6.5 X10'3 (1.8-7.7); PLATELET COUNT 185 X10'3 (140-440); RED CELL DISTRIBUTION WIDTH 13.4 % (11.5-14.5); WHITE BLOOD COUNT 8.5 X10'3 (4.5-11.0)
[2020-06-06] MEDS ORDERED: cefepime 1GM in D5W 50mL 50 ML IV SCH (08:00)
[2020-06-06] MEDS: K and/or MAG REPLACEMENT MC SCH ×2 (08:00→20:00)
[2020-06-06] MEDS ORDERED: LIDOcaine 2% 10ml vial SQ STA (08:06)
[2020-06-06] MEDS ORDERED: LIDOcaine 2% (20mg/ml) 5ml vial SQ STA (08:11)
--- NOTE | 2020-06-06 08:11 | NUR ---
Linked med note:Med used by Dr Nunez, therefore not scanned on eMAR.
[2020-06-06] MEDS: normal saline 1000ml 1,000 ML IV SCH ×2 (09:25→13:48)
[2020-06-06 10:00] VITALS: BP 139/89
[2020-06-06] MEDS: cefepime inj. 1 GM in normal saline 100ml IV soln 100 ML IV SCH ×5 (10:19→23:39)
[2020-06-06] MEDS: metoprolol tartrate 50mg tablet PO SCH ×2 (10:20→19:55)
[2020-06-06] MEDS: lisinopril 10 MG tablet PO SCH (10:21)
[2020-06-06] MEDS: heparin, porcine 5000 units/ml vial SQ SCH ×2 (10:22→19:53)
--- NOTE | 2020-06-06 11:23 | NUR ---
DM consult: Pt with A1c 4.8%, DM education not warranted at this time. Pt would benefit from diet change to regular given current A1c. BG range 75-113 mg/dL since admit. Will continue to follow. Addendum: 06/06/20 at [address] Amended: Links added.
[2020-06-06 14:27] LABS: URINE AMPHETAMINE SCREEN NEGATIVE (Neg); URINE BARBITUATE SCREEN NEGATIVE (Neg); URINE BENZODIAZEPINES SCREEN POSITIVE (Neg); URINE CANNABINOID SCREEN POSITIVE (Neg); URINE COCAINE SCREEN NEGATIVE (Neg); URINE METHADONE SCREEN NEGATIVE (Neg); URINE OPIATE SCREEN POSITIVE (Neg); URINE PHENCYCLIDINE SCREEN NEGATIVE (Neg)
[2020-06-06 17:00] VITALS: BP 116/82
--- NOTE | 2020-06-06 18:30 | NUR ---
Problems reprioritized. Patient report given, questions answered & plan of care reviewed with HAYLEY Kowalski.
[2020-06-06] MEDS: lactobacillus rhamnosus 10,000 MMU CELLS/CAPSULE PO SCH (19:53)
[2020-06-06] MEDS: insulin glargine (Lantus) pen - multi-dose SQ SCH (20:01)
[2020-06-06] MEDS ORDERED: VANCOMYCIN LEVEL IV ONE (20:30)
[2020-06-06 22:27] VITALS: BP 117/82
[2020-06-07] MEDS: HYDROcodone/acetaminophen 10/325mg tab PO PRN ×2 (01:53→09:22)
[2020-06-07] MEDS: VANCOMYCIN 1,500MG inj. 1,500 MG in normal saline 250ml IV soln 300 ML IV SCH (04:26)
--- NOTE | 2020-06-07 04:30 | NUR ---
Pt requested that I check his blood sugar and asked for a pudding. BS = 75. Snacks given for comfort.
[2020-06-07] MEDS: normal saline 1000ml 1,000 ML IV SCH (04:42)
[2020-06-07 06:50] LABS: BASOPHILS # (AUTO) 0.1 X10'3 (0-0.2); BASOPHILS % (AUTO) 1.3 % (0-1); EOSINOPHILS # (AUTO) 0.2 X10'3 (0-0.9); EOSINOPHILS % (AUTO) 3.1 % (0-6); HEMOGLOBIN 12.5 g/dl (14.0-17.9); LYMPHOCYTES # (AUTO) 1.4 X10'3 (1.1-4.8); LYMPHOCYTES % (AUTO) 26.7 % (21-51); MEAN CORPUSCULAR HEMOGLOBIN 34.5 PG (27.0-31.0); MEAN CORPUSCULAR HGB CONC 34.8 g/dL (33.0-36.5); MEAN CORPUSCULAR VOLUME 99.1 FL (78-98); MEAN PLATELET VOLUME 8.8 FL (7.4-10.4); MONOCYTES # (AUTO) 0.4 X10'3 (0-0.9); NEUTROPHILS # (AUTO) 3.3 X10'3 (1.8-7.7); NEUTROPHILS % (AUTO) 60.9 % (42-75); PLATELET COUNT 188 X10'3 (140-440); RED BLOOD COUNT 3.63 X10'6 (4.70-6.10); RED CELL DISTRIBUTION WIDTH 13.3 % (11.5-14.5); WHITE BLOOD COUNT 5.3 X10'3 (4.5-11.0)
[2020-06-07 06:58] LABS: ALANINE AMINOTRANSFERASE 41 U/L (12-78); ALBUMIN 2.3 G/DL (3.4-5.0); ALBUMIN/GLOBULIN RATIO 0.5 (1.1-1.5); ALKALINE PHOSPHATASE 72 IU/L (46-116); ANION GAP 6 (8-16); ASPARTATE AMINO TRANSFERASE 31 U/L (10-37); BILIRUBIN,TOTAL 0.5 MG/DL (0.1-1.0); BLOOD UREA NITROGEN 14 MG/DL (7-18); BUN/CREATININE RATIO 18.4 (5.4-32.0); CHLORIDE 105 MMOL/L (99-107); CREATININE 0.76 MG/DL (0.60-1.10); GLUCOSE 83 MG/DL (70-104); PHOSPHORUS 3.6 MG/DL (2.3-4.5); POTASSIUM 3.8 MMOL/L (3.5-5.1); SODIUM 135 MMOL/L (135-145); TOTAL CARBON DIOXIDE 23.8 MMOL/L (24-32); TOTAL PROTEIN 6.5 G/DL (6.4-8.2); eGFR > 90 ML/MIN
[2020-06-07] MEDS: heparin, porcine 5000 units/ml vial SQ SCH (08:00)
[2020-06-07] MEDS: cefepime inj. 1 GM in normal saline 100ml IV soln 100 ML IV SCH (09:17)
[2020-06-07 09:18] VITALS: BP_SYST 127
[2020-06-07] MEDS: lisinopril 10 MG tablet PO SCH (09:18)
[2020-06-07] MEDS: metoprolol tartrate 50mg tablet PO SCH (09:18)
[2020-06-07] MEDS: lactobacillus rhamnosus 10,000 MMU CELLS/CAPSULE PO SCH (09:18)
[2020-06-07] MEDS ORDERED: LINE600T12 PO (11:01)
[2020-06-07] MEDS ORDERED: LACT1CAP26 PO (11:01)
--- NOTE | 2020-06-07 13:44 | NUR ---
Gave DC instructions to guard to take back to [facility]
== END 2020-06-07 13:44 | DRG 603 ==
LOC: ER 09:40 → EEVIPCON 13:25 → ED HOLD 13:25 → ORTHO 4S 14:45
PROVIDERS: ADMIT Family Medicine; ATTEND Family Medicine
PROC: 0H9GXZZ Drainage of Left Hand Skin, External Approach (ICD-10-PCS; principal; 2020-06-06)
DX: L02.512 Cutaneous abscess of left hand (principal); I10 Essential (primary) hypertension; E11.9 Type 2 diabetes mellitus without complications; G89.4 Chronic pain syndrome; F20.9 Schizophrenia, unspecified; F41.9 Anxiety disorder, unspecified; L03.012 Cellulitis of left finger; F17.200 Nicotine dependence, unspecified, uncomplicated; F10.10 Alcohol abuse, uncomplicated; F15.10 Other stimulant abuse, uncomplicated; Z71.6 Tobacco abuse counseling; Z82.3 Family history of stroke; Z91.19 Patient's noncompliance with other medical treatment and regimen; Z79.899 Other long term (current) drug therapy
CPT/HCPCS: 36415; 73220; 80053; 80061; 80202; 80305; 81001; 82948; 83036; 83605; 83735; 84100; 84145; 85025; 85610; 85730; 87040; 87081; 99285; A9575; G0378; J0692; J1644; J1815; J2270; J3370; J7030; J7050

== ENCOUNTER 2020-06-26 22:28 | Emergency (ER) | payer MEDICAID, OTHER ==
[~2020-06-26] VITALS: Ht 175.3 cm; Wt 98.3 kg
[~2020-06-26 22:28] MED LIST changes: +LACT1CAP26 PO; +LINE600T12 PO; +LISI10TA PO; +METF-438 PO; +METO50TA17 PO; -NO HOME MEDS
[2020-06-26] MEDS ORDERED: levetiracetam 250mg tablet PO ONE (23:20)
[2020-06-26] MEDS ORDERED: KEP500T PO (23:21)
--- NOTE | 2020-06-26 23:22 | NUR ---
pt is 44yo male c/o having a seizure yesterday during parole, lac to rt eye, healing well, last tetanus was 2 years ago, drank 2 40s and smoked meth today, no trauma to tongue, talking full sentences, resp even and unlabored
[2020-06-26 23:40] VITALS: BP 156/97
== END 2020-06-26 23:30 | disposition home or self-care (01) ==
LOC: ER 22:29
DX: R56.9 Unspecified convulsions (principal); I10 Essential (primary) hypertension; E11.9 Type 2 diabetes mellitus without complications; G89.29 Other chronic pain; F41.9 Anxiety disorder, unspecified; F31.9 Bipolar disorder, unspecified; F20.9 Schizophrenia, unspecified; F12.90 Cannabis use, unspecified, uncomplicated; F15.90 Other stimulant use, unspecified, uncomplicated; Z86.69 Personal history of other diseases of the nervous system and sense organs; Z72.89 Other problems related to lifestyle; Z79.899 Other long term (current) drug therapy
CPT/HCPCS: 99284

== ENCOUNTER 2020-07-09 12:10 | Emergency (ER) | payer MEDICAID ==
[~2020-07-09] VITALS: Ht 175.3 cm; Wt 107.3 kg
[~2020-07-09 12:10] MED LIST changes: +KEP500T PO; -LINE600T12 PO
[2020-07-09] MEDS ORDERED: cloNIDine 0.1 mg tablet PO ONE (13:20)
[2020-07-09 13:32] LABS: BASOPHILS % (AUTO) 1.2 % (0-1); EOSINOPHILS % (AUTO) 0.3 % (0-6); HEMATOCRIT 41.4 % (42.0-52.0); HEMOGLOBIN 14.6 g/dl (14.0-17.9); LYMPHOCYTES % (AUTO) 23.5 % (21-51); MEAN CORPUSCULAR HEMOGLOBIN 34.2 PG (27.0-31.0); MEAN CORPUSCULAR HGB CONC 35.2 g/dL (33.0-36.5); MEAN CORPUSCULAR VOLUME 97.2 FL (78-98); MEAN PLATELET VOLUME 7.4 FL (7.4-10.4); MONOCYTES # (AUTO) 0.3 X10'3 (0-0.9); MONOCYTES % (AUTO) 8.3 % (2-12); NEUTROPHILS # (AUTO) 2.8 X10'3 (1.8-7.7); NEUTROPHILS % (AUTO) 66.7 % (42-75); PLATELET COUNT 122 X10'3 (140-440); RED BLOOD COUNT 4.26 X10'6 (4.70-6.10); RED CELL DISTRIBUTION WIDTH 14.9 % (11.5-14.5); WHITE BLOOD COUNT 4.1 X10'3 (4.5-11.0)
[2020-07-09 13:41] LABS: URINE AMPHETAMINE SCREEN POSITIVE (Neg); URINE BARBITUATE SCREEN NEGATIVE (Neg); URINE BENZODIAZEPINES SCREEN NEGATIVE (Neg); URINE CANNABINOID SCREEN NEGATIVE (Neg); URINE COCAINE SCREEN NEGATIVE (Neg); URINE METHADONE SCREEN NEGATIVE (Neg); URINE OPIATE SCREEN NEGATIVE (Neg); URINE PHENCYCLIDINE SCREEN NEGATIVE (Neg)
[2020-07-09 13:41] LABS: ALANINE AMINOTRANSFERASE 31 U/L (12-78); ALBUMIN 3.7 G/DL (3.4-5.0); ALBUMIN/GLOBULIN RATIO 0.7 (1.1-1.5); ALKALINE PHOSPHATASE 112 IU/L (46-116); ANION GAP 11 (8-16); ASPARTATE AMINO TRANSFERASE 37 U/L (10-37); BLOOD UREA NITROGEN 5 MG/DL (7-18); BUN/CREATININE RATIO 6.1 (5.4-32.0); CALCIUM 8.3 MG/DL (8.5-10.1); CHLORIDE 97 MMOL/L (99-107); CREATININE 0.82 MG/DL (0.60-1.10); ETHANOL < 0.010 GM/DL (0.0-0.010); GLUCOSE 90 MG/DL (70-104); POTASSIUM 3.1 MMOL/L (3.5-5.1); SODIUM 135 MMOL/L (135-145); TOTAL CARBON DIOXIDE 27.1 MMOL/L (24-32); TOTAL PROTEIN 8.8 G/DL (6.4-8.2); eGFR > 90 ML/MIN
[2020-07-09] MEDS ORDERED: labetalol 100mg tablet PO SCH (15:05)
[2020-07-09] MEDS ORDERED: labetalol 100mg tablet PO ONE (15:05)
[2020-07-09] MEDS ORDERED: potassium Cl 20 mEq SR tablet PO STA (15:06)
--- NOTE | 2020-07-09 15:17 | NUR ---
TC TO [facility] TO OBTAIN MEDICATION LIST.
[2020-07-09] MEDS ORDERED: HYDR12.55 PO (15:58)
[2020-07-09] MEDS ORDERED: BUPR200T34 PO (15:58)
[2020-07-09] MEDS ORDERED: LISI-600 PO (15:58)
[2020-07-09] MEDS ORDERED: PRAZ5CAP2 PO (15:58)
[2020-07-09] MEDS ORDERED: LAMO25TA72 PO (15:58)
[2020-07-09] MEDS ORDERED: HYDR50TA65 PO (15:58)
[2020-07-09] MEDS ORDERED: METF-438 PO (15:58)
--- NOTE | 2020-07-09 16:04 | NUR ---
PT SITTING UP IN BED .DENIES ANY CONCERN ,PRIMARY NURSE ON BREAK.WILL CONT TO MONITOR.
--- NOTE | 2020-07-09 18:12 | NUR ---
notified the night nurse denzel to reassess the pt bld pressure ,as pt recvied bp meds.
--- NOTE | 2020-07-09 20:00 | NUR ---
The patient has been resting on his bed. He was polite during the evening assessment.He stated that he was having suicidal thoughts. He stated that he has been living on the streets for the past [address] that [facility] has been working with him to locate housing. He stated that he has had depression since he was a child. He reports he has a history of schizoaffective disorder and multiple prior psychiatric hospitalizations. He reports he is hearing voices telling him "to hurt myselff" He reports visual hallucinations of black spots. He also is reporting racing thoughts. His drug screen was positive for amphetamines.
--- NOTE | 2020-07-09 20:53 | NUR ---
BP is 164/120 and HR was 89
[2020-07-09] MEDS ORDERED: prazosin 5mg capsule PO SCH (21:00)
[2020-07-09] MEDS ORDERED: HYDROchlorothiazide 25mg tablet PO ONE (21:05)
[2020-07-09] MEDS ORDERED: lisinopril 20mg tablet PO ONE (21:05)
--- NOTE | 2020-07-09 21:25 | NUR ---
Dr. Templeton made aware of continued elevated BP and order received.
--- NOTE | 2020-07-09 21:41 | NUR ---
BREAKING PRIMARY RN; WILL CONT TO MONITOR PT STATUS.
--- NOTE | 2020-07-09 22:02 | NUR ---
The patient appears to be asleep
--- NOTE | 2020-07-10 00:41 | NUR ---
The patient appears to be sleeping
--- NOTE | 2020-07-10 02:47 | NUR ---
The patient appears to be sleeping
--- NOTE | 2020-07-10 04:35 | NUR ---
The patient appears to be sleeping
--- NOTE | 2020-07-10 06:40 | NUR ---
ASSUMED CARE PT RESTING WITH EYES CLOSED RR EQUAL AND UNLBORED
[2020-07-10 07:07] LABS: CLARITY,URINE CLEAR (Clear); COLOR,URINE YELLOW (Yellow); GLUCOSE, URINE NEGATIVE (Neg); KETONES,URINE NEGATIVE (Neg); LEUKOCYTE ESTERASE ,URINE NEGATIVE (Neg); NITRITES, URINE NEGATIVE (Neg); OCCULT BLOOD,URINE SMALL (Neg); PROTEIN,URINE NEGATIVE (Neg)
[2020-07-10 07:14] LABS: UA COLLECTION TYPE VOIDED
[2020-07-10 07:17] LABS: BACTERIA,URINE NONE SEEN /HPF (Neg); MUCUS STRANDS NONE SEEN /LPF (Neg); SQUAMOUS EPITHELIAL CELL,UR FEW /LPF (FEW); WBC,URINE NONE SEEN /HPF (0-4)
[2020-07-10] MEDS ORDERED: metFORMIN 500mg tablet PO SCH (08:00)
[2020-07-10] MEDS ORDERED: lamoTRIgine 25mg tablet PO SCH (08:00)
[2020-07-10] MEDS ORDERED: buPROPion SR 100mg tab PO SCH (08:00)
[2020-07-10] MEDS ORDERED: hydrOXYzine 25 MG tablet PO SCH (08:00)
[2020-07-10] MEDS ORDERED: lisinopril 20mg tablet PO SCH (08:00)
[2020-07-10] MEDS ORDERED: HYDROchlorothiazide 12.5mg capsule PO SCH (08:00)
--- NOTE | 2020-07-10 08:50 | NUR ---
Pt status provided HAYLEY Oglesby for possible placement RB. Norma
--- NOTE | 2020-07-10 09:12 | NUR ---
CALL FROM [facility] HAS ACCEPTED PT PENDING DC THIS AFTERNOON. PT UP TO BR [facility]
--- NOTE | 2020-07-10 09:25 | NUR ---
[facility] OFFICE CALLED PT HAS OFFICIALY BEEN ACCEPTED AT [facility]. REQUESTED TSH AND UA RESULTS BE FAXED.
--- NOTE | 2020-07-10 12:30 | NUR ---
PT RESTING RR EQUAL AND UNLABORED EYES CLOSED
--- NOTE | 2020-07-10 14:18 | NUR ---
public relations supervisor time for [facility] ~ 1915, per [facility] personnel. Primary HAYLEY Lucio notified.
--- NOTE | 2020-07-10 15:48 | NUR ---
PT MOVED FROM CH[facility]RO 27 TO BED 24. PT RESTING WITH EYES CLOSED RR EQUAL AND UNLABORED
[2020-07-11 03:56] VITALS: BP 139/100
== END 2020-07-10 19:39 ==
LOC: ER 12:11
DX: I10 Essential (primary) hypertension (principal); R45.851 Suicidal ideations; E11.9 Type 2 diabetes mellitus without complications; G89.29 Other chronic pain; F41.9 Anxiety disorder, unspecified; F31.9 Bipolar disorder, unspecified; F20.9 Schizophrenia, unspecified; F12.90 Cannabis use, unspecified, uncomplicated; F15.90 Other stimulant use, unspecified, uncomplicated; Z72.89 Other problems related to lifestyle; Z86.69 Personal history of other diseases of the nervous system and sense organs; Z79.899 Other long term (current) drug therapy
CPT/HCPCS: 36415; 80053; 80305; 80320; 81001; 84443; 85025; 99285; Q0177

== ENCOUNTER 2020-08-03 13:55 | Emergency (ER) | payer MEDICAID ==
[~2020-08-03] VITALS: Ht 172.7 cm; Wt 103.3 kg
[~2020-08-03 13:55] MED LIST changes: +BUPR200T34 PO; +HYDR12.55 PO; +HYDR50TA65 PO; -KEP500T PO; -LACT1CAP26 PO; +LAMO25TA72 PO; +LISI-600 PO; -LISI10TA PO; -METO50TA17 PO; +PRAZ5CAP2 PO
[2020-08-03] MEDS ORDERED: normal saline 1000ML IV soln IVB ONE (14:25)
--- NOTE | 2020-08-03 14:26 | NUR ---
Narinder over-ridden from [employer] and given at Aaorn Smith's request
[2020-08-03] MEDS ORDERED: naloxone 2mg/2ml inj ONE (14:29)
[2020-08-03 14:41] LABS: BASOPHILS # (AUTO) 0.1 X10'3 (0-0.2); HEMOGLOBIN 13.8 g/dl (14.0-17.9); LYMPHOCYTES # (AUTO) 1.5 X10'3 (1.1-4.8); LYMPHOCYTES % (AUTO) 29.2 % (21-51); MEAN CORPUSCULAR HGB CONC 34.4 g/dL (33.0-36.5); MONOCYTES # (AUTO) 0.3 X10'3 (0-0.9)
[2020-08-03 14:43] LABS: BASOPHILS % (AUTO) 1.9 % (0-1); EOSINOPHILS # (AUTO) 0.1 X10'3 (0-0.9); EOSINOPHILS % (AUTO) 2.7 % (0-6); HEMATOCRIT 40.2 % (42.0-52.0); MEAN CORPUSCULAR HEMOGLOBIN 34.8 PG (27.0-31.0); MEAN PLATELET VOLUME 7.6 FL (7.4-10.4); MONOCYTES % (AUTO) 6.3 % (2-12); NEUTROPHILS % (AUTO) 59.9 % (42-75); PLATELET COUNT 151 X10'3 (140-440); RED BLOOD COUNT 3.98 X10'6 (4.70-6.10); RED CELL DISTRIBUTION WIDTH 14.6 % (11.5-14.5)
[2020-08-03 14:56] LABS: ALANINE AMINOTRANSFERASE 31 U/L (12-78); ALBUMIN 3.7 G/DL (3.4-5.0); ALKALINE PHOSPHATASE 83 IU/L (46-116); ANION GAP 11 (8-16); ASPARTATE AMINO TRANSFERASE 32 U/L (10-37); BILIRUBIN,TOTAL 0.4 MG/DL (0.1-1.0); BLOOD UREA NITROGEN 6 MG/DL (7-18); BUN/CREATININE RATIO 8.3 (5.4-32.0); CALCIUM 7.8 MG/DL (8.5-10.1); CHLORIDE 106 MMOL/L (99-107); CREATININE 0.72 MG/DL (0.60-1.10); GLUCOSE 126 MG/DL (70-104); POTASSIUM 3.5 MMOL/L (3.5-5.1); SODIUM 142 MMOL/L (135-145); TOTAL CARBON DIOXIDE 25.2 MMOL/L (24-32); TOTAL PROTEIN 7.5 G/DL (6.4-8.2); eGFR > 90 ML/MIN
[2020-08-03 15:39] LABS: CLARITY,URINE CLEAR (Clear); COLOR,URINE YELLOW (Yellow); GLUCOSE, URINE NEGATIVE (Neg); KETONES,URINE NEGATIVE (Neg); LEUKOCYTE ESTERASE ,URINE NEGATIVE (Neg); NITRITES, URINE NEGATIVE (Neg); OCCULT BLOOD,URINE TRACE-INTACT (Neg); PROTEIN,URINE NEGATIVE (Neg); UROBILINOGEN,URINE 0.2 E.U/dL (0.2-1.0)
[2020-08-03 15:40] LABS: UA COLLECTION TYPE STRAIGHT CATH
[2020-08-03 15:46] LABS: BACTERIA,URINE NONE SEEN /HPF (Neg); MUCUS STRANDS FEW /LPF (Neg); RBC,URINE 0-2 /HPF (0-2); SQUAMOUS EPITHELIAL CELL,UR NONE SEEN /LPF (FEW); WBC,URINE NONE SEEN /HPF (0-4)
[2020-08-03 15:51] LABS: URINE AMPHETAMINE SCREEN POSITIVE (Neg); URINE BARBITUATE SCREEN NEGATIVE (Neg); URINE BENZODIAZEPINES SCREEN NEGATIVE (Neg); URINE CANNABINOID SCREEN NEGATIVE (Neg); URINE COCAINE SCREEN NEGATIVE (Neg); URINE METHADONE SCREEN NEGATIVE (Neg); URINE OPIATE SCREEN NEGATIVE (Neg); URINE PHENCYCLIDINE SCREEN NEGATIVE (Neg)
[2020-08-03 17:59] VITALS: BP 164/127
== END 2020-08-03 17:57 | disposition home or self-care (01) ==
LOC: ER 13:55
DX: F10.129 Alcohol abuse with intoxication, unspecified (principal); R41.82 Altered mental status, unspecified; F15.10 Other stimulant abuse, uncomplicated; I10 Essential (primary) hypertension; E11.9 Type 2 diabetes mellitus without complications; G89.29 Other chronic pain; F41.9 Anxiety disorder, unspecified; F31.9 Bipolar disorder, unspecified; F20.9 Schizophrenia, unspecified; F12.90 Cannabis use, unspecified, uncomplicated; Z86.69 Personal history of other diseases of the nervous system and sense organs; Z72.89 Other problems related to lifestyle; Z79.84 Long term (current) use of oral hypoglycemic drugs; Z79.899 Other long term (current) drug therapy
CPT/HCPCS: 36415; 80053; 80305; 80320; 81001; 82140; 85025; 93005; 96360; 96361; 99285; J2310; J7030

== ENCOUNTER 2020-10-25 06:28 | Emergency (ER) | payer MEDICAID ==
[~2020-10-25] VITALS: Ht 175.3 cm; Wt 99.0 kg
[2020-10-25 07:02] LABS: BASOPHILS % (AUTO) 1.2 % (0-1); EOSINOPHILS % (AUTO) 1.3 % (0-6); HEMATOCRIT 41.3 % (42.0-52.0); HEMOGLOBIN 14.3 g/dl (14.0-17.9); LYMPHOCYTES # (AUTO) 0.5 X10'3 (1.1-4.8); LYMPHOCYTES % (AUTO) 26.6 % (21-51); MEAN CORPUSCULAR HEMOGLOBIN 33.9 PG (27.0-31.0); MEAN CORPUSCULAR HGB CONC 34.5 g/dL (33.0-36.5); MEAN CORPUSCULAR VOLUME 98.3 FL (78-98); MEAN PLATELET VOLUME 8.3 FL (7.4-10.4); MONOCYTES # (AUTO) 0.3 X10'3 (0-0.9); MONOCYTES % (AUTO) 12.8 % (2-12); NEUTROPHILS # (AUTO) 1.2 X10'3 (1.8-7.7); NEUTROPHILS % (AUTO) 58.1 % (42-75); PLATELET COUNT 79 X10'3 (140-440); RED CELL DISTRIBUTION WIDTH 13.6 % (11.5-14.5)
[2020-10-25 07:17] LABS: ALANINE AMINOTRANSFERASE 138 U/L (12-78); ALBUMIN 4.2 G/DL (3.4-5.0); ALBUMIN/GLOBULIN RATIO 1.1 (1.1-1.5); ALKALINE PHOSPHATASE 96 IU/L (46-116); ANION GAP 11 (8-16); ASPARTATE AMINO TRANSFERASE 153 U/L (10-37); BILIRUBIN,TOTAL 2.2 MG/DL (0.1-1.0); BLOOD UREA NITROGEN 7 MG/DL (7-18); CALCIUM 9.4 MG/DL (8.5-10.1); CHLORIDE 100 MMOL/L (99-107); CREATININE 0.78 MG/DL (0.60-1.10); GLUCOSE 89 MG/DL (70-104); POTASSIUM 3.7 MMOL/L (3.5-5.1); SODIUM 137 MMOL/L (135-145); TOTAL CARBON DIOXIDE 26.2 MMOL/L (24-32); TOTAL PROTEIN 8.1 G/DL (6.4-8.2); eGFR > 90 ML/MIN
[2020-10-25 07:19] LABS: URINE AMPHETAMINE SCREEN NEGATIVE (Neg); URINE BARBITUATE SCREEN NEGATIVE (Neg); URINE BENZODIAZEPINES SCREEN NEGATIVE (Neg); URINE CANNABINOID SCREEN POSITIVE (Neg); URINE COCAINE SCREEN NEGATIVE (Neg); URINE METHADONE SCREEN NEGATIVE (Neg); URINE OPIATE SCREEN NEGATIVE (Neg); URINE PHENCYCLIDINE SCREEN NEGATIVE (Neg)
[2020-10-25 07:21] LABS: CLARITY,URINE SLIGHTLY CLOUDY (Clear); GLUCOSE, URINE NEGATIVE (Neg); KETONES,URINE 15 mg/dl (Neg); LEUKOCYTE ESTERASE ,URINE NEGATIVE (Neg); NITRITES, URINE NEGATIVE (Neg); OCCULT BLOOD,URINE SMALL (Neg); PROTEIN,URINE 30 mg/dl (Neg); UROBILINOGEN,URINE >=8.0 E.U/dL (0.2-1.0)
[2020-10-25 07:31] LABS: ETHANOL < 0.010 GM/DL (0.0-0.010)
[2020-10-25 07:36] LABS: TOTAL CELLS COUNTED 100
[2020-10-25 07:38] LABS: PLATELET ESTIMATE DECREASED; SPHEROCYTES FEW; TEAR DROP CELLS 1+
[2020-10-25 07:39] LABS: UA COLLECTION TYPE CLN CATCH MIDSTREAM
[2020-10-25 07:40] LABS: COLOR,URINE DARK YELLOW (Yellow)
[2020-10-25 07:49] LABS: SQUAMOUS EPITHELIAL CELL,UR FEW /LPF (FEW)
[2020-10-25 07:50] LABS: BACTERIA,URINE FEW /HPF (Neg); MUCUS STRANDS FEW /LPF (Neg); WBC,URINE 0-4 /HPF (0-4)
--- NOTE | 2020-10-25 08:52 | NUR ---
PT LAYING IN BED IN RGT LATERAL POSITION ,NO DISTRESS NOTED .WILL CONT MONITOR.
--- NOTE | 2020-10-25 11:05 | NUR ---
DAVID FROM [facility] WITH PATIENT AT THIS TIME.
--- NOTE | 2020-10-25 13:56 | NUR ---
JORGE FROM [facility] CALLED AND STATED THAT PATIENT WAS ACCEPTED TO [facility] IN [place], BY DR. CANDELARIO DAILY. DOORSHAKER TIME SCHEDULED FOR [id number] THIS EVENING. RAPID COVID SWAB OBTAINED AND SENT TO LAB. RESULT TO BE FAXED TO [facility] [place] AT [phone].
[2020-10-25] MEDS ORDERED: HYDROchlorothiazide 12.5mg capsule PO SCH (14:24)
[2020-10-25] MEDS ORDERED: lisinopril 20mg tablet PO SCH (14:24)
[2020-10-25 17:48] VITALS: BP 130/85
== END 2020-10-25 19:42 ==
LOC: ER 06:29
DX: R45.851 Suicidal ideations (principal); D69.6 Thrombocytopenia, unspecified; R74.01 Elevation of levels of liver transaminase levels; G89.29 Other chronic pain; M54.9 Dorsalgia, unspecified; F31.9 Bipolar disorder, unspecified; F20.9 Schizophrenia, unspecified; I10 Essential (primary) hypertension; F12.10 Cannabis abuse, uncomplicated; F15.10 Other stimulant abuse, uncomplicated; Z79.899 Other long term (current) drug therapy; Z20.828 Contact with and (suspected) exposure to other viral communicable diseases
CPT/HCPCS: 36415; 80053; 80305; 80320; 81001; 82948; 84443; 85007; 85025; 87635; 99285; C9803